=== PATIENT | female | born 1945 | race Native Hawaiian/Other Pacific Islander ===

== ENCOUNTER 2017-01-26 10:09 | Outpatient (CLI) | payer OTHER | END 2017-01-26 11:15 | disposition home or self-care (01) | LOC: MAMMO 10:09 | DX: Z12.31 Encounter for screening mammogram for malignant neoplasm of breast (principal) | CPT/HCPCS: G0202-TC ==

== ENCOUNTER 2018-02-10 09:27 | Outpatient (CLI) | payer OTHER | END 2018-02-10 22:14 | disposition home or self-care (01) | LOC: MAMMO 09:27 | DX: Z12.31 Encounter for screening mammogram for malignant neoplasm of breast (principal) ==

== ENCOUNTER 2022-07-22 10:46 | Outpatient (CLI) | payer OTHER | END 2022-07-22 19:00 | disposition home or self-care (01) | LOC: MAMMO 10:46 | PROVIDERS: ATTEND Internal Medicine | DX: Z12.31 Encounter for screening mammogram for malignant neoplasm of breast (principal); Z13.820 Encounter for screening for osteoporosis; N95.8 Other specified menopausal and perimenopausal disorders ==

== ENCOUNTER 2022-09-03 09:42 | Outpatient (CLI) | payer OTHER | END 2022-09-03 18:56 | disposition home or self-care (01) | LOC: MAMMO 09:42 | PROVIDERS: ATTEND Internal Medicine | DX: N64.59 Other signs and symptoms in breast (principal) ==